=== PATIENT | male | born 1985 | race African-American/Black ===

== ENCOUNTER 2023-07-08 22:09 | Emergency (ER) | payer OTHER ==
[~2023-07-08] VITALS: Ht 180.3 cm; Wt 95.5 kg
[2023-07-08 22:45] VITALS: RESP 20; O2SAT 96
[2023-07-08 23:54] VITALS: BP 144/81; PULSE 76; TEMP 98.2
[2023-07-09] MEDS ORDERED: IBUPROFEN 800 MG TAB PO ONE (00:15)
[2023-07-09] MEDS ORDERED: IBUP-1456 PO (01:30)
[2023-07-09] MEDS ORDERED: METH-1181 PO (01:51)
== END 2023-07-09 01:58 | disposition home or self-care (01) ==
LOC: EDBD 22:09 → ER 22:09
DX: S16.1XXA Strain of muscle, fascia and tendon at neck level, initial encounter (principal); S86.912A Strain of unspecified muscle(s) and tendon(s) at lower leg level, left leg, initial encounter; M54.59 Other low back pain; M25.562 Pain in left knee; M51.36 Other intervertebral disc degeneration, lumbar region; V69.88XA Occupant (driver) (passenger) of heavy transport vehicle injured in other specified transport accidents, initial encounter; Y93.89 Activity, other specified; Y92.89 Other specified places as the place of occurrence of the external cause; Y99.8 Other external cause status
CPT/HCPCS: 72040; 72100; 73562